=== PATIENT | male | born 1960 | race Caucasian/White ===

== ENCOUNTER 2019-02-26 05:59 | Inpatient (IN) ==
[2019-02-26] MEDS ORDERED: ceFAZolin 2,000 MG in Water for inj. (sterile) 20 ML IVP ONE (06:20)
[2019-02-26] MEDS ORDERED: Chlorhexidine Rinse 15 ML MOUTHWASH MM ONE (06:22)
[2019-02-26] MEDS ORDERED: Ringers Solution, Lactated 1,000 ML IVC SCH (06:30)
[2019-02-26] MEDS ORDERED: Albuterol 2.5 MG/3 ML NEBULIZER IH ONE (06:36)
[2019-02-26] MEDS ORDERED: Nitroglycerin 25 MG/250 ML INFUS..BTL IVC ONE (06:44)
[2019-02-26] MEDS ORDERED: *HR* FentaNYL (PF) 1,000 MCG/20 ML VIAL ONE (06:49)
[2019-02-26] MEDS ORDERED: *HR* Midazolam HCl 5 MG/5 ML VIAL IVP ONE (06:49)
[2019-02-26] MEDS ORDERED: *HR* Propofol 200 MG/20 ML VIAL IVP ONE (06:50)
[2019-02-26] MEDS ORDERED: Dexamethasone 4 MG/ML VIAL ONE (06:52)
[2019-02-26] MEDS ORDERED: Lidocaine 2% Syringe 100 MG/5 ML ONE (06:52)
[2019-02-26] MEDS ORDERED: Famotidine 20 MG/2 ML VIAL ONE (06:52)
[2019-02-26] MEDS ORDERED: *HR* Magnesium Sulfate 1 GM/2 ML VIAL ONE (06:52)
[2019-02-26] MEDS ORDERED: *HR* PHENYLEPHRINE 1,000 MCG/10 ML SYRINGE IVP ONE ×3 (06:52→12:16)
[2019-02-26] MEDS ORDERED: *HR* Rocuronium Bromide 50 MG/5 ML VIAL ONE ×3 (06:52→10:42)
[2019-02-26] MEDS ORDERED: CeFAZolin Syr 2,000MG/20 ML 2,000 MG/20 ML SYRINGE IVPB ONE (07:00)
[2019-02-26] MEDS ORDERED: Norepinephrine 4 MG in 0.9 % Sodium Chloride 250 ML IVC PRN (07:45)
[2019-02-26] MEDS ORDERED: Heparin 15,000 UNIT in 0.9 % Sodium Chloride 500 ML IV ONE (07:45)
[2019-02-26] MEDS ORDERED: Insulin Human Regular 100 UNIT in 0.9 % Sodium Chloride 100 ML IV PRN (07:45)
[2019-02-26] MEDS ORDERED: Dextrose 50 % in Water (Vial) 30 ML, Sodium Bicarbonate 20 MEQ, Potassium Chloride 15 M... TH ONE (07:45)
[2019-02-26] MEDS ORDERED: Dextrose 50 % in Water (Vial) 30 ML, Sodium Bicarbonate 20 MEQ, Lidocaine 1% 5 ML, Insu... TH ONE ×3 (07:45)
[2019-02-26 07:59] LABS: ABG Base Excess -1 mEq/L (-2 to 3); ABG Chloride 104 mEq/L (98-107); ABG Glucose 318 mg/dL (60-95); ABG HCO3 24 mEq/L (21-27); ABG Ionized Calcium 1.19 mmol/L (1.15-1.35); ABG Oxygen Saturation 100 % (95-98); ABG PCO2 39 mmHg (35-45); ABG PO2 202 mmHg (85-104); ABG TCO2 25 mEq/L (20-26)
[2019-02-26] MEDS ORDERED: Tranexamic Acid 1,000 MG/10 ML VIAL ONE (08:27)
[2019-02-26] MEDS ORDERED: Mannitol 25% vial 12.5 GM/50 ML VIAL IVP ONE (08:28)
[2019-02-26] MEDS ORDERED: Albumin Human 25% 25 GM/100 ML IV.SOLN IV ONE (08:28)
[2019-02-26] MEDS ORDERED: *HR* Heparin 10,000 UNIT/10 ML VIAL IV ONE (08:28)
[2019-02-26] MEDS ORDERED: Sodium Bicarbonate 50 MEQ/50 ML VIAL IVC ONE (08:28)
[2019-02-26] MEDS ORDERED: Tranexamic Acid 1,000 MG/10 ML VIAL IVP ONE (08:28)
[2019-02-26] MEDS ORDERED: Lidocaine 2% Syringe 100 MG/5 ML IV ONE (08:28)
[2019-02-26] MEDS ORDERED: *HR* Magnesium Sulfate 2 GM/50 ML PIGGYBACK IVPB ONE (08:28)
[2019-02-26] MEDS ORDERED: *HR* Phenylephrine 10 MG/ML VIAL IVC ONE (08:28)
[2019-02-26 10:01] LABS: ABG Base Excess -2 mEq/L (-2 to 3); ABG Chloride 104 mEq/L (98-107); ABG Glucose 284 mg/dL (60-95); ABG HCO3 23 mEq/L (21-27); ABG Ionized Calcium 1.17 mmol/L (1.15-1.35); ABG Oxygen Saturation 99 % (95-98); ABG PCO2 41 mmHg (35-45); ABG PH 7.37 pH Units (7.32-7.45); ABG PO2 142 mmHg (85-104); ABG TCO2 25 mEq/L (20-26)
[2019-02-26] MEDS ORDERED: Albumin Human 5% 25.0 GM/500 ML VIAL ONE (10:09)
[2019-02-26 10:59] LABS: ABG Base Excess 3 mEq/L (-2 to 3); ABG Chloride 101 mEq/L (98-107); ABG Glucose 287 mg/dL (60-95); ABG HCO3 28 mEq/L (21-27); ABG Ionized Calcium 1.06 mmol/L (1.15-1.35); ABG Oxygen Saturation 100 % (95-98); ABG PCO2 44 mmHg (35-45); ABG PH 7.42 pH Units (7.32-7.45); ABG PO2 442 mmHg (85-104); ABG TCO2 30 mEq/L (20-26)
[2019-02-26] MEDS ORDERED: *HR* Vasopressin 20 UNIT/ML VIAL ONE (11:07)
[2019-02-26] MEDS ORDERED: Protamine Sulfate 250 MG/25 ML VIAL IVP ONE (11:46)
[2019-02-26] MEDS ORDERED: Calcium Gluconate 1,000 MG/10 ML VIAL ONE (11:46)
[2019-02-26 11:49] LABS: ABG Base Excess 2 mEq/L (-2 to 3); ABG Chloride 102 mEq/L (98-107); ABG Glucose 265 mg/dL (60-95); ABG HCO3 27 mEq/L (21-27); ABG Ionized Calcium 1.35 mmol/L (1.15-1.35); ABG Oxygen Saturation 100 % (95-98); ABG PCO2 42 mmHg (35-45); ABG PH 7.41 pH Units (7.32-7.45); ABG PO2 354 mmHg (85-104); ABG TCO2 28 mEq/L (20-26)
[2019-02-26] MEDS ORDERED: Albumin Human 5% 50.0 GM/1,000 ML VIAL ONE (12:23)
[2019-02-26 12:26] LABS: ABG Base Excess -1 mEq/L (-2 to 3); ABG Chloride 103 mEq/L (98-107); ABG Glucose 219 mg/dL (60-95); ABG HCO3 24 mEq/L (21-27); ABG Ionized Calcium 1.24 mmol/L (1.15-1.35); ABG Oxygen Saturation 100 % (95-98); ABG PCO2 40 mmHg (35-45); ABG PH 7.39 pH Units (7.32-7.45); ABG PO2 283 mmHg (85-104); ABG TCO2 25 mEq/L (20-26)
[2019-02-26] MEDS ORDERED: 0.9 % Sodium Chloride 500 ML ONE (12:44)
[2019-02-26] MEDS ORDERED: Amiodarone Premix 150 MG/100 ML BAG IVPB ONE (13:20)
[2019-02-26] MEDS ORDERED: Insulin Regular, Human 100 UNIT/ML IV PRN (13:20)
[2019-02-26] MEDS: Insulin Human Regular 100 UNIT in 0.9 % Sodium Chloride 100 ML IVC SCH ×2 (13:20→21:26)
[2019-02-26] MEDS ORDERED: Naloxone 0.4 MG/ML INJ IVP PRN (13:20)
[2019-02-26] MEDS ORDERED: *HR* Dextrose 50 % in Water (Syg) 50 ML SYRINGE IVP PRN (13:20)
[2019-02-26] MEDS ORDERED: Acetaminophen 325 MG TABLET PO PRN (13:20)
[2019-02-26] MEDS ORDERED: Amiodarone Premix 360 MG/200 ML BAG IVC ONE (13:20)
[2019-02-26] MEDS ORDERED: Potassium Chloride 40 MEQ/200 ML BAG IVPB PRN (13:20)
[2019-02-26] MEDS ORDERED: Ondansetron 4 MG/2 ML VIAL IVP PRN (13:20)
[2019-02-26] MEDS ORDERED: Calcium Gluconate 1gm/50mL 1 GM/50 ML BAG IVPB PRN (13:20)
[2019-02-26] MEDS ORDERED: Acetaminophen 650 MG RECTAL SUPP RC PRN (13:20)
[2019-02-26] MEDS ORDERED: 0.9 % Sodium Chloride w KCl 20 MEQ/1,000 ML MLS IVC SCH (13:30)
[2019-02-26] MEDS ORDERED: Amiodarone Premix 360 MG/200 ML BAG IVC SCH (13:30)
[2019-02-26] MEDS ORDERED: Norepinephrine 4 MG in 0.9 % Sodium Chloride 250 ML IVC SCH (13:30)
[2019-02-26 13:40] LABS: ABG Base Excess 1 mEq/L (-2 to 3); ABG HCO3 27 mEq/L (21-27); ABG Oxygen Saturation 95 % (95-98); ABG PCO2 48 mmHg (35-45); ABG PH 7.36 pH Units (7.32-7.45); ABG PO2 79 mmHg (85-104); ABG TCO2 28 mEq/L (20-26); Blood Gas Modality AF; Blood Gas VT 600 cc
[2019-02-26 13:44] LABS: Basophils % 0.3 %; Eosinophils % 0.1 %; Hematocrit 36.4 % (37.5-50.1); Hemoglobin 12.9 g/dL (12.9-16.9); Immature Granulocytes % 0.9 % (0-4); Lymphocytes # 0.6 K/mcL (0.6-4.6); Lymphocytes % 4.4 %; Mean Corpuscular HGB Conc 35.4 g/dL (31.6-35.5); Mean Corpuscular Hemoglobin 31.2 pg (28.0-33.3); Mean Corpuscular Volume 88.1 fL (83.0-100.0); Mean Platelet Volume 9.9 fL (9.4-12.4); Monocytes # 0.4 K/mcL (0.0-1.3); Platelet Count 161 K/mcL (140-400); Red Blood Count 4.13 M/mcL (4.19-5.50); Red Cell Distribution Width 12.4 % (11.5-14.5); Segmented Neutrophils % 91.3 %
[2019-02-26 13:49] LABS: Neutrophils # 12.9 K/mcL (1.6-8.9); White Blood Count 14.1 K/mcL (4.3-11.1)
[2019-02-26 13:51] LABS: INR 1.3; Prothrombin Time 14.3 Seconds (9.4-12.1)
[2019-02-26 13:53] LABS: Activated Partial Thrombo Time 27.3 Seconds (26.0-36.0)
[2019-02-26 13:58] LABS: BUN/Creatinine Ratio 20 (6-26); Blood Urea Nitrogen 15 mg/dL (6-20); Calcium 8.5 mg/dL (8.6-10.3); Carbon Dioxide 24 mEq/L (23-29); Chloride 106 mEq/L (98-107); Glucose 187 mg/dL (70-105); Magnesium 2.4 mg/dL (1.6-2.6); Osmolality,Calculated 292 (280-300); Potassium 3.4 mEq/L (3.5-5.1); Sodium 138 mEq/L (136-145); eGFR For African Americans > 60 (> 60); eGFR For Non-African Americans > 60 (> 60)
[2019-02-26] MEDS: Nitroglycerin 25 MG/250 ML INFUS..BTL IVC SCH ×3 (14:10→23:03)
[2019-02-26] MEDS: Pantoprazole 40 MG VIAL IVP SCH (14:50)
[2019-02-26] MEDS: *HR* FentaNYL (PF) 100 MCG/2 ML VIAL IVP PRN ×2 (14:57→20:02)
[2019-02-26] MEDS: *HR* OxyCODONE/APAP 5/325 TABLET PO PRN ×2 (16:21→23:34)
[2019-02-26 16:22] LABS: ABG Base Excess 0 mEq/L (-2 to 3); ABG HCO3 25 mEq/L (21-27); ABG Oxygen Saturation 97 % (95-98); ABG PCO2 41 mmHg (35-45); ABG PH 7.39 pH Units (7.32-7.45); ABG PO2 94 mmHg (85-104); ABG TCO2 26 mEq/L (20-26); Blood Gas Modality CPAP/PS; Blood Gas Pressure Support 10 cm H2O
[2019-02-26 17:30] LABS: ABG Base Excess 0 mEq/L (-2 to 3); ABG HCO3 25 mEq/L (21-27); ABG Oxygen Saturation 93 % (95-98); ABG PCO2 42 mmHg (35-45); ABG PH 7.38 pH Units (7.32-7.45); ABG PO2 70 mmHg (85-104); ABG TCO2 26 mEq/L (20-26)
[2019-02-26 17:35] LABS: Hematocrit 35.5 % (37.5-50.1); Hemoglobin 12.6 g/dL (12.9-16.9)
[2019-02-26] MEDS: Metoclopramide 10 MG/2 ML VIAL IVP SCH ×2 (18:06→23:02)
[2019-02-26] MEDS: Ketorolac 15 MG/ML VIAL IVP SCH ×2 (18:06→23:02)
[2019-02-26] MEDS: niCARdipine 20 MG/200 ML MLS IVC SCH ×2 (20:01→23:02)
[2019-02-26] MEDS: Chlorhexidine Rinse 15 ML MOUTHWASH MM SCH (20:01)
[2019-02-27 03:31] LABS: INR 1.2; Prothrombin Time 13.3 Seconds (9.4-12.1)
[2019-02-27 03:34] LABS: Activated Partial Thrombo Time 25.8 Seconds (26.0-36.0)
[2019-02-27 03:38] LABS: Basophils % 0.1 %; Hematocrit 32.5 % (37.5-50.1); Hemoglobin 11.1 g/dL (12.9-16.9); Immature Granulocytes % 0.3 % (0-4); Lymphocytes # 1.1 K/mcL (0.6-4.6); Lymphocytes % 7.7 %; Mean Corpuscular HGB Conc 34.2 g/dL (31.6-35.5); Mean Corpuscular Hemoglobin 31.4 pg (28.0-33.3); Mean Corpuscular Volume 91.8 fL (83.0-100.0); Monocytes # 1.1 K/mcL (0.0-1.3); Monocytes % 7.8 %; Neutrophils # 12.1 K/mcL (1.6-8.9); Platelet Count 121 K/mcL (140-400); Red Blood Count 3.54 M/mcL (4.19-5.50); Red Cell Distribution Width 12.7 % (11.5-14.5); Segmented Neutrophils % 84.1 %; White Blood Count 14.4 K/mcL (4.3-11.1)
[2019-02-27 03:47] LABS: BUN/Creatinine Ratio 26 (6-26); Blood Urea Nitrogen 17 mg/dL (6-20); Calcium 8.2 mg/dL (8.6-10.3); Carbon Dioxide 22 mEq/L (23-29); Chloride 108 mEq/L (98-107); Glucose 140 mg/dL (70-105); Osmolality,Calculated 288 (280-300); Potassium 4.1 mEq/L (3.5-5.1); Sodium 137 mEq/L (136-145); eGFR For African Americans > 60 (> 60); eGFR For Non-African Americans > 60 (> 60)
[2019-02-27] MEDS: *HR* OxyCODONE/APAP 5/325 TABLET PO PRN ×5 (04:49→21:09)
[2019-02-27] MEDS: Metoclopramide 10 MG/2 ML VIAL IVP SCH ×3 (05:01→17:55)
[2019-02-27] MEDS: Ketorolac 15 MG/ML VIAL IVP SCH ×3 (05:01→17:54)
[2019-02-27] MEDS: *HR* FentaNYL (PF) 100 MCG/2 ML VIAL IVP PRN ×2 (06:21→11:34)
[2019-02-27] MEDS ORDERED: carvediloL 6.25 MG TABLET PO SCH (08:00)
[2019-02-27] MEDS ORDERED: Furosemide 20 MG/2 ML VIAL IVP SCH (08:00)
[2019-02-27] MEDS: Chlorhexidine Rinse 15 ML MOUTHWASH MM SCH ×2 (08:32→21:03)
[2019-02-27] MEDS: Pantoprazole 40 MG VIAL IVP SCH (08:33)
[2019-02-27] MEDS ORDERED: *HR* Amiodarone 200 MG TABLET PO SCH (09:00)
[2019-02-27] MEDS ORDERED: Aspirin Enteric Coated 81 MG Tablet PO SCH (09:00)
[2019-02-27] MEDS ORDERED: *HR* Dextrose 50 % in Water (Syg) 50 ML SYRINGE IVP PRN (13:28)
[2019-02-27] MEDS ORDERED: Naloxone 0.4 MG/ML INJ IVP PRN (13:28)
[2019-02-27] MEDS ORDERED: D5% in Water 1,000 ML IVC PRN (13:28)
[2019-02-27] MEDS ORDERED: Acetaminophen 325 MG TABLET PO PRN (13:28)
[2019-02-27] MEDS ORDERED: Dextrose Gel 15 GM/37.5 ML TUBE PO PRN ×2 (13:28)
[2019-02-27] MEDS ORDERED: Insulin Regular, Human 100 UNIT/ML IV PRN (13:28)
[2019-02-27] MEDS ORDERED: Ondansetron 4 MG/2 ML VIAL IVP PRN (13:28)
[2019-02-27] MEDS ORDERED: Insulin Human Regular 100 UNIT in 0.9 % Sodium Chloride 100 ML IVC SCH (13:28)
[2019-02-27] MEDS: GlipiZIDE 5 MG TABLET PO SCH (14:17)
[2019-02-27] MEDS: *HR* Heparin 5,000 UNIT/ML VIAL SQ SCH (14:17)
[2019-02-27] MEDS: Insulin LISPRO 300 UNITS/3 ML VIAL SQ SCH ×2 (17:00→21:09)
[2019-02-27] MEDS: Furosemide 20 MG/2 ML VIAL IVP SCH (17:02)
[2019-02-27] MEDS: carvediloL 6.25 MG TABLET PO SCH (17:55)
[2019-02-28] MEDS: Metoclopramide 10 MG/2 ML VIAL IVP SCH ×5 (00:07→23:28)
[2019-02-28] MEDS: Ketorolac 15 MG/ML VIAL IVP SCH ×5 (00:07→23:27)
[2019-02-28] MEDS: *HR* OxyCODONE/APAP 5/325 TABLET PO PRN ×4 (01:38→20:00)
[2019-02-28 04:05] LABS: Basophils % 0.2 %; Eosinophils % 0.3 %; Hematocrit 31.7 % (37.5-50.1); Hemoglobin 10.9 g/dL (12.9-16.9); Immature Granulocytes % 0.6 % (0-4); Lymphocytes # 1.9 K/mcL (0.6-4.6); Lymphocytes % 17.1 %; Mean Corpuscular HGB Conc 34.4 g/dL (31.6-35.5); Mean Corpuscular Hemoglobin 31.7 pg (28.0-33.3); Mean Corpuscular Volume 92.2 fL (83.0-100.0); Mean Platelet Volume 10.8 fL (9.4-12.4); Monocytes # 1.2 K/mcL (0.0-1.3); Monocytes % 11.1 %; Neutrophils # 7.7 K/mcL (1.6-8.9); Platelet Count 117 K/mcL (140-400); Red Blood Count 3.44 M/mcL (4.19-5.50); Red Cell Distribution Width 13.2 % (11.5-14.5); Segmented Neutrophils % 70.7 %; White Blood Count 10.8 K/mcL (4.3-11.1)
[2019-02-28 04:18] LABS: BUN/Creatinine Ratio 29 (6-26); Blood Urea Nitrogen 23 mg/dL (6-20); Calcium 8.2 mg/dL (8.6-10.3); Carbon Dioxide 23 mEq/L (23-29); Chloride 105 mEq/L (98-107); Glucose 159 mg/dL (70-105); Osmolality,Calculated 289 (280-300); Potassium 4.1 mEq/L (3.5-5.1); Sodium 136 mEq/L (136-145); eGFR For African Americans > 60 (> 60); eGFR For Non-African Americans > 60 (> 60)
[2019-02-28] MEDS: *HR* Heparin 5,000 UNIT/ML VIAL SQ SCH ×2 (05:36→17:14)
[2019-02-28] MEDS: Insulin LISPRO 300 UNITS/3 ML VIAL SQ SCH ×4 (07:43→20:00)
[2019-02-28] MEDS: GlipiZIDE 5 MG TABLET PO SCH ×2 (08:54→16:56)
[2019-02-28] MEDS: Chlorhexidine Rinse 15 ML MOUTHWASH MM SCH ×2 (08:54→20:00)
[2019-02-28] MEDS: Furosemide 20 MG/2 ML VIAL IVP SCH (08:54)
[2019-02-28] MEDS: Aspirin Enteric Coated 81 MG Tablet PO SCH (08:54)
[2019-02-28] MEDS: carvediloL 6.25 MG TABLET PO SCH (12:16)
[2019-02-28 23:44] LABS: Basophils % 0.3 %; Eosinophils # 0.2 K/mcL (0.0-0.6); Eosinophils % 2.1 %; Hematocrit 29.7 % (37.5-50.1); Hemoglobin 10.3 g/dL (12.9-16.9); Immature Granulocytes % 0.3 % (0-4); Lymphocytes # 1.4 K/mcL (0.6-4.6); Lymphocytes % 16.1 %; Mean Corpuscular HGB Conc 34.7 g/dL (31.6-35.5); Mean Corpuscular Hemoglobin 31.8 pg (28.0-33.3); Mean Corpuscular Volume 91.7 fL (83.0-100.0); Mean Platelet Volume 10.7 fL (9.4-12.4); Monocytes # 0.9 K/mcL (0.0-1.3); Monocytes % 10.6 %; Neutrophils # 6.2 K/mcL (1.6-8.9); Platelet Count 117 K/mcL (140-400); Red Blood Count 3.24 M/mcL (4.19-5.50); Red Cell Distribution Width 12.8 % (11.5-14.5); Segmented Neutrophils % 70.6 %; White Blood Count 8.8 K/mcL (4.3-11.1)
[2019-02-28 23:59] LABS: BUN/Creatinine Ratio 34 (6-26); Blood Urea Nitrogen 28 mg/dL (6-20); Calcium 8.3 mg/dL (8.6-10.3); Carbon Dioxide 26 mEq/L (23-29); Chloride 105 mEq/L (98-107); Glucose 188 mg/dL (70-105); Osmolality,Calculated 292 (280-300); Potassium 3.6 mEq/L (3.5-5.1); Sodium 136 mEq/L (136-145); eGFR For African Americans > 60 (> 60); eGFR For Non-African Americans > 60 (> 60)
[2019-03-01] MEDS: Ketorolac 15 MG/ML VIAL IVP SCH ×4 (06:28→23:32)
[2019-03-01] MEDS: *HR* Heparin 5,000 UNIT/ML VIAL SQ SCH ×2 (06:28→17:09)
[2019-03-01] MEDS: Metoclopramide 10 MG/2 ML VIAL IVP SCH ×3 (06:29→17:09)
[2019-03-01] MEDS: Furosemide 20 MG TABLET PO SCH (08:40)
[2019-03-01] MEDS: GlipiZIDE 5 MG TABLET PO SCH ×2 (08:40→17:08)
[2019-03-01] MEDS: Aspirin Enteric Coated 81 MG Tablet PO SCH (08:40)
[2019-03-01] MEDS: Chlorhexidine Rinse 15 ML MOUTHWASH MM SCH ×2 (08:41→20:18)
[2019-03-01] MEDS: Insulin LISPRO 300 UNITS/3 ML VIAL SQ SCH ×4 (08:43→20:18)
[2019-03-01] MEDS ORDERED: MOM Conc 10 ML UD.LIQ PO PRN (08:44)
[2019-03-01] MEDS: *HR* OxyCODONE/APAP 5/325 TABLET PO PRN ×2 (14:36→19:19)
[2019-03-02] MEDS: Ketorolac 15 MG/ML VIAL IVP SCH ×4 (05:16→23:43)
[2019-03-02] MEDS: *HR* Heparin 5,000 UNIT/ML VIAL SQ SCH ×2 (05:17→18:10)
[2019-03-02] MEDS: Aspirin Enteric Coated 81 MG Tablet PO SCH (08:25)
[2019-03-02] MEDS: GlipiZIDE 5 MG TABLET PO SCH ×2 (08:25→18:11)
[2019-03-02] MEDS: *HR* OxyCODONE/APAP 5/325 TABLET PO PRN ×2 (08:25→20:14)
[2019-03-02] MEDS: Chlorhexidine Rinse 15 ML MOUTHWASH MM SCH ×2 (08:25→20:14)
[2019-03-02] MEDS: Furosemide 20 MG TABLET PO SCH (08:25)
[2019-03-02] MEDS: Insulin LISPRO 300 UNITS/3 ML VIAL SQ SCH ×4 (08:26→20:14)
[2019-03-03 01:52] LABS: Basophils % 0.5 %; Eosinophils # 0.4 K/mcL (0.0-0.6); Eosinophils % 7.1 %; Hematocrit 30.7 % (37.5-50.1); Hemoglobin 10.3 g/dL (12.9-16.9); Immature Granulocytes % 0.3 % (0-4); Lymphocytes # 1.4 K/mcL (0.6-4.6); Lymphocytes % 23.9 %; Mean Corpuscular HGB Conc 33.6 g/dL (31.6-35.5); Mean Corpuscular Hemoglobin 31.2 pg (28.0-33.3); Mean Platelet Volume 10.4 fL (9.4-12.4); Monocytes # 0.7 K/mcL (0.0-1.3); Monocytes % 11.3 %; Neutrophils # 3.4 K/mcL (1.6-8.9); Platelet Count 165 K/mcL (140-400); Red Cell Distribution Width 12.7 % (11.5-14.5); Segmented Neutrophils % 56.9 %; White Blood Count 5.9 K/mcL (4.3-11.1)
[2019-03-03 02:12] LABS: BUN/Creatinine Ratio 25 (6-26); Blood Urea Nitrogen 19 mg/dL (6-20); Calcium 8.4 mg/dL (8.6-10.3); Carbon Dioxide 25 mEq/L (23-29); Chloride 103 mEq/L (98-107); Glucose 131 mg/dL (70-105); Osmolality,Calculated 288 (280-300); Potassium 3.7 mEq/L (3.5-5.1); Sodium 137 mEq/L (136-145); eGFR For African Americans > 60 (> 60); eGFR For Non-African Americans > 60 (> 60)
[2019-03-03] MEDS: *HR* Heparin 5,000 UNIT/ML VIAL SQ SCH ×2 (05:36→16:47)
[2019-03-03] MEDS: Ketorolac 15 MG/ML VIAL IVP SCH ×3 (05:36→16:48)
[2019-03-03] MEDS: Chlorhexidine Rinse 15 ML MOUTHWASH MM SCH ×2 (08:07→20:07)
[2019-03-03] MEDS: *HR* OxyCODONE/APAP 5/325 TABLET PO PRN ×2 (08:07→20:07)
[2019-03-03] MEDS: Aspirin Enteric Coated 81 MG Tablet PO SCH (08:07)
[2019-03-03] MEDS: Furosemide 20 MG TABLET PO SCH (08:07)
[2019-03-03] MEDS: GlipiZIDE 5 MG TABLET PO SCH ×2 (08:07→16:49)
[2019-03-03] MEDS: Insulin LISPRO 300 UNITS/3 ML VIAL SQ SCH ×4 (08:10→20:08)
[2019-03-03] MEDS ORDERED: 0.9 % Sodium Chloride 250 ML ONE (10:16)
[2019-03-03] MEDS ORDERED: Potassium Chloride Elixir 20 MEQ/15 ML UDC PO ONE (10:39)
[2019-03-04] MEDS: *HR* OxyCODONE/APAP 5/325 TABLET PO PRN ×4 (03:49→21:16)
[2019-03-04] MEDS: *HR* Heparin 5,000 UNIT/ML VIAL SQ SCH ×2 (05:21→16:33)
[2019-03-04] MEDS: Furosemide 20 MG TABLET PO SCH (08:02)
[2019-03-04] MEDS: Chlorhexidine Rinse 15 ML MOUTHWASH MM SCH ×2 (08:02→20:03)
[2019-03-04] MEDS: Aspirin Enteric Coated 81 MG Tablet PO SCH (08:03)
[2019-03-04] MEDS: Insulin LISPRO 300 UNITS/3 ML VIAL SQ SCH ×4 (08:03→20:03)
[2019-03-04] MEDS: GlipiZIDE 5 MG TABLET PO SCH ×2 (08:03→16:33)
[2019-03-05] MEDS: *HR* Heparin 5,000 UNIT/ML VIAL SQ SCH (04:56)
[2019-03-05 08:18] VITALS: BP 161/100
[2019-03-05] MEDS: GlipiZIDE 5 MG TABLET PO SCH (09:07)
[2019-03-05] MEDS: Insulin LISPRO 300 UNITS/3 ML VIAL SQ SCH (09:07)
[2019-03-05] MEDS: Chlorhexidine Rinse 15 ML MOUTHWASH MM SCH (09:07)
[2019-03-05] MEDS: Aspirin Enteric Coated 81 MG Tablet PO SCH (09:08)
[2019-03-05] MEDS: Furosemide 20 MG TABLET PO SCH (09:08)
[2019-03-05] MEDS: *HR* OxyCODONE/APAP 5/325 TABLET PO PRN (11:31)
== END 2019-03-05 14:51 | disposition home or self-care (01) | DRG 236 ==
LOC: SAMDAY 05:59 → ICNU 12:09 → 2NNU 03-01 07:52
PROVIDERS: ADMIT Thoracic Surgery (Cardiothoracic Vascular Surgery); ATTEND Thoracic Surgery (Cardiothoracic Vascular Surgery)